=== PATIENT | male | born 1950 | race Caucasian/White ===

== ENCOUNTER 2021-12-27 06:17 | Day surgery (SDC) | payer MEDICARE, SELFPAY ==
--- NOTE | 2021-12-22 16:30 | MHC.SHP ---
Pre-Procedural Eval Section A Date of Service: 12/22/21 The patient is an INPATIENT: No Changes since office visit: No Cold of Flu in the past 2 weeks, No New Medical Problems, No Changes in Medication and No Patient answered all questions The History & Physical has been completed within 30 days and I have reviewed it.: Yes Section B Chief Complaint: cataract Allergies: Allergies Allergy/AdvReac Type Severity Reaction Status Date / Time No Known Allergies Allergy Verified 12/21/21 14:36 Plan Diagnosis/Plan: Unchanged I have reviewed the history and physical and performed a pertinent physical examination on my patient. No changes have occurred unless specified.
--- NOTE | 2021-12-24 08:47 | P.CONAN_ITS ---
Documented by User: Meghna Shay NP 12/24/21 08:47 HPI - Anesthesia Eval Consult details Narrative: 71yo M for Left Cataract Extraction IOL Insertion PCP cleared No previous cataract on record [facility] Past Medical History Medical History (Updated 12/21/21 @ 14:36 by Lauren Ruiz, RN) Elevated cholesterol GERD (gastroesophageal reflux disease) HTN (hypertension) Surgical History Surgical History (Updated 12/21/21 @ 14:36 by Lauren Ruiz RN) Hx of colonoscopy Social History Social History Are you a primary intensive care anaesthetist to a significant other at home: No Do you presently have visiting nurse or other home services: No Patient Tobacco Use Status: Former Tobacco user Quit Date: 30 years ago Tobacco use type: Cigarette Second Hand Smoke Exposure: No Use of substances other than those prescribed or required for medical reasons: No Have you been hit, kicked, punched, or otherwise hurt by someone within the past year? If so, by whom?: No Are you DNR?: No Advance Directives: No Advance Directives Information Provided: Yes Advance Directives on File: No Recently lost weight without trying: No Eating poorly because of decreased appetite: No Nutrition Risks: No Nutritional Risk Meds Allergies Allergy/AdvReac Type Severity Reaction Status Date / Time No Known Allergies Allergy Verified 12/21/21 14:36 Home Medications Medication Instructions Recorded Confirmed Last Taken Type amlodipine 5 mg tablet 1 tab PO DAILY 12/21/21 12/21/21 12/27/21 History losartan 100 mg tablet 1 tab PO DAILY 12/21/21 12/21/21 Unknown History omeprazole 20 mg tablet,delayed 20 mg PO DAILY 12/21/21 12/21/21 12/27/21 History release psyllium husk 3.4 gram/5.4 gram 1 tbsp PO DAILY 12/21/21 12/21/21 Unknown History oral powder (Metamucil) rosuvastatin 20 mg tablet 1 tab PO BEDTIME 12/21/21 12/21/21 Unknown History Exam Exam Date and Time: December 24, 2021 0847 Height,Weight and Vital Signs: Height 5 ft 4 in Weight 79.379 kg Assessment and Plan Assessment Anesthesia Assessment: Chart Reviewed Documented by User: Ilya Carter MD 12/27/21 07:02 [facility] Past Medical History Medical History (Updated 12/21/21 @ 14:36 by Lauren Ruiz, RN) Elevated cholesterol GERD (gastroesophageal reflux disease) HTN (hypertension) Family History Family history of problems with anesthesia: No Surgical History Surgical History (Updated 12/21/21 @ 14:36 by Lauren Ruiz, KANDY) Hx of colonoscopy History of Problems with Anesthesia: No Social History Social History Are you a primary intensive care anaesthetist to a significant other at home: No Do you presently have visiting nurse or other home services: No Patient Tobacco Use Status: Former Tobacco user Quit Date: 30 years ago Tobacco use type: Cigarette Second Hand Smoke Exposure: No Use of substances other than those prescribed or required for medical reasons: No Have you been hit, kicked, punched, or otherwise hurt by someone within the past year? If so, by whom?: No Are you DNR?: No Advance Directives: No Advance Directives Information Provided: Yes Advance Directives on File: No Recently lost weight without trying: No Eating poorly because of decreased appetite: No Nutrition Risks: No Nutritional Risk Meds Allergies Allergy/AdvReac Type Severity Reaction Status Date / Time No Known Allergies Allergy Verified 12/21/21 14:36 Home Medications Medication Instructions Recorded Confirmed Last Taken Type amlodipine 5 mg tablet 1 tab PO DAILY 12/21/21 12/21/21 12/27/21 History losartan 100 mg tablet 1 tab PO DAILY 12/21/21 12/21/21 Unknown History omeprazole 20 mg tablet,delayed 20 mg PO DAILY 12/21/21 12/21/21 12/27/21 History release psyllium husk 3.4 gram/5.4 gram 1 tbsp PO DAILY 12/21/21 12/21/21 Unknown History oral powder (Metamucil) rosuvastatin 20 mg tablet 1 tab PO BEDTIME 12/21/21 12/21/21 Unknown History Exam Airway Mallampati Class: II TM Dist: >3cm Neck ROM: Full Loose/Missing/Broken Teeth: No (many caps and crowns, none loose as per patient) Heart: rrr+s1s2 Lungs: cta b/l Assessment and Plan Assessment Anesthesia Assessment: Anesthesia Plan Discussed Final Anesthetic Review Family History of Problems with Anesthesia: No History of Problems with Anesthesia: No NPO: Yes ASA Class: III Final Preanesthetic Review: No Changes in Pt Med Stat, Meds/Allgs Chart Reviewed, Consent Obtained/Reviewed and Anes Risks/Benef Reviewed Patient Risk: Intermediate Procedure Risk: Low Assessment/Block/Sedation in SS: Assess/Block/Sedation-SS Anesthetic Plan Anesthetic Plan: MAC: and Agree w/ Assess. and Plan Disposition: Standard PACU
[2021-12-27 06:25] VITALS: BP 178/84; PULSE 61; RESP 18; TEMP 36.1; O2SAT 96
[2021-12-27] MEDS: Lactated Ringers 500 ML 50 ML IV (06:29)
[2021-12-27] MEDS: Tropicamide 1 % Ophth Sol 3 ML BTL 1 DROP EYE-LEFT ×3 (06:31→06:32)
[2021-12-27] MEDS: Phenylephrine HCL 2.5% Oph SoL 2 ML BOTTLE 1 DROP EYE-LEFT ×3 (06:31→06:32)
[2021-12-27] MEDS: Tetracaine HCl/PF 0.5% Oph Sol 4 ML DROPS 1 DROP EYE-LEFT (06:31)
--- NOTE | 2021-12-27 07:09 | HO.PNOPHT ---
Ophthalmology Procedure Procedure Date of Service: 12/27/21 Ophthalmology Viscoelastic: Healon Duet Dual Pack Pro Ophthalmology Lenses: TECELMER [id number] (21.5) Procedure Notes: PREOPERATIVE DIAGNOSIS: Decreased visual acuity left eye secondary to cataract POSTOPERATIVE DIAGNOSIS: Same PROCEDURE: Left cataract extraction with intraocular lens insertion SURGEON: Jair Gambino M.D. ANESTHESIA: Topical/MAC ESTIMATED BLOOD LOSS: None COMPLICATIONS: None After obtaining informed consent, the patient was brought to the operation room suite and placed in the supine position. After adequate sedation per anesthesia, topical drops of Tetracaine were given to the left eye. The eye was then prepped and draped in the usual sterile fashion. The operating room microscope was then positioned over the operative eye and a lid speculum placed. A paracentesis was created. Viscoelastic was then instilled into the anterior chamber. A three plane incision was then created temporally, utilizing a 2.85 mm keratome. Capsulotomy forceps were then utilized to create a circular tear capsulotomy. Hydrodissection and hydrodelineation were carried out until adequate mobilization of the nucleus occurred. Phacoemulsification was then utilized to remove the dense central nucleus followed by removal of the cortical material utilizing the automated aspiration irrigation unit. Viscoat elastic was instilled into the posterior capsular bag followed by placement of a posterior chamber intraocular lens without difficulty. The residual Viscoat elastic was then removed utilizing the automated IA machine. The wound was check and found to be watertight. The patient tolerated the procedure well and the lid speculum was removed. Intracameral injection of Vigamox 0.1 mL followed by a subtenon injection of Kenalog-40 0.2 mL were administered. The patient will be seen in the a.m.
[2021-12-27 07:53] VITALS: BP 136/74; PULSE 59; RESP 18; TEMP 36.6; O2SAT 96
== END 2021-12-27 08:04 | disposition home or self-care (01) ==
PROVIDERS: PCP Internal Medicine; Visit Provider Ophthalmology
PROC: (CPT 66985; principal; 2021-12-27 07:30)
DX: H25.12 Age-related nuclear cataract, left eye (principal); Z83.511 Family history of glaucoma; H40.013 Open angle with borderline findings, low risk, bilateral; H52.4 Presbyopia; H35.00 Unspecified background retinopathy; I10 Essential (primary) hypertension; E78.00 Pure hypercholesterolemia, unspecified; K21.9 Gastro-esophageal reflux disease without esophagitis; Z79.899 Other long term (current) drug therapy
CPT/HCPCS: 66984; J2250; J3010; J3300; V2632

== ENCOUNTER 2022-01-10 06:44 | Day surgery (SDC) | payer MEDICARE, SELFPAY ==
--- NOTE | 2022-01-06 08:03 | MHC.SHP ---
Pre-Procedural Eval Section A Date of Service: 01/06/22 The patient is an INPATIENT: No Changes since office visit: No Cold of Flu in the past 2 weeks, No New Medical Problems, No Changes in Medication and No Patient answered all questions The History & Physical has been completed within 30 days and I have reviewed it.: Yes Section B Chief Complaint: cataract Allergies: Allergies Allergy/AdvReac Type Severity Reaction Status Date / Time No Known Allergies Allergy Verified 12/21/21 14:36 Plan Diagnosis/Plan: Unchanged I have reviewed the history and physical and performed a pertinent physical examination on my patient. No changes have occurred unless specified.
--- NOTE | 2022-01-06 12:11 | HO.ANESPROP2 ---
Documented by User: Meghna Shay NP 01/06/22 12:12 HPI - Anesthesia Eval Consult details Narrative: 71yo M for Right Cataract Extraction IOL Insertion PCP cleared Left eye 12/27/21 with MAC: Fent 50, Midaz 1 PMFSH Past Medical History Medical History (Updated 12/21/21 @ 14:36 by Lauren Ruiz, RN) Elevated cholesterol GERD (gastroesophageal reflux disease) HTN (hypertension) Family History Family history of problems with anesthesia: No Surgical History Surgical History (Updated 12/21/21 @ 14:36 by Lauren Ruiz, RN) Hx of colonoscopy History of Problems with Anesthesia: No Social History Social History Are you a primary career placement services counselor to a significant other at home: No Do you presently have visiting nurse or other home services: No Patient Tobacco Use Status: Former Tobacco user Quit Date: 30 years ago Tobacco use type: Cigarette Second Hand Smoke Exposure: No Use of substances other than those prescribed or required for medical reasons: No Have you been hit, kicked, punched, or otherwise hurt by someone within the past year? If so, by whom?: No Are you DNR?: No Advance Directives: No Advance Directives Information Provided: Yes Advance Directives on File: No Recently lost weight without trying: No Eating poorly because of decreased appetite: No Nutrition Risks: No Nutritional Risk Meds Allergies Allergy/AdvReac Type Severity Reaction Status Date / Time No Known Allergies Allergy Verified 12/21/21 14:36 Home Medications Medication Instructions Recorded Confirmed Last Taken Type amlodipine 5 mg tablet 1 tab PO DAILY 12/21/21 12/21/21 12/27/21 History losartan 100 mg tablet 1 tab PO DAILY 12/21/21 12/21/21 Unknown History omeprazole 20 mg tablet,delayed 20 mg PO DAILY 12/21/21 12/21/21 12/27/21 History release psyllium husk 3.4 gram/5.4 gram 1 tbsp PO DAILY 12/21/21 12/21/21 Unknown History oral powder (Metamucil) rosuvastatin 20 mg tablet 1 tab PO BEDTIME 12/21/21 12/21/21 Unknown History Exam Exam Date and Time: January 06, 2022 1211 Height,Weight and Vital Signs: Height 5 ft 4 in Weight 79.379 kg Assessment and Plan Assessment Anesthesia Assessment: Chart Reviewed Final Anesthetic Review Family History of Problems with Anesthesia: No History of Problems with Anesthesia: No Documented by User: Ilya Carter MD 01/09/22 12:00 [facility] Past Medical History Medical History (Updated 12/21/21 @ 14:36 by Lauren Ruiz, RN) Elevated cholesterol GERD (gastroesophageal reflux disease) HTN (hypertension) Surgical History Surgical History (Updated 12/21/21 @ 14:36 by Lauren Ruiz RN) Hx of colonoscopy Social History Social History Are you a primary career placement services counselor to a significant other at home: No Do you presently have visiting nurse or other home services: No Patient Tobacco Use Status: Former Tobacco user Quit Date: 30 years ago Tobacco use type: Cigarette Second Hand Smoke Exposure: No Use of substances other than those prescribed or required for medical reasons: No Have you been hit, kicked, punched, or otherwise hurt by someone within the past year? If so, by whom?: No Are you DNR?: No Advance Directives: No Advance Directives Information Provided: Yes Advance Directives on File: No Recently lost weight without trying: No Eating poorly because of decreased appetite: No Nutrition Risks: No Nutritional Risk Meds Allergies Allergy/AdvReac Type Severity Reaction Status Date / Time No Known Allergies Allergy Verified 12/21/21 14:36 Home Medications Medication Instructions Recorded Confirmed Last Taken Type amlodipine 5 mg tablet 1 tab PO DAILY 12/21/21 12/21/21 12/27/21 History losartan 100 mg tablet 1 tab PO DAILY 12/21/21 12/21/21 Unknown History omeprazole 20 mg tablet,delayed 20 mg PO DAILY 12/21/21 12/21/21 12/27/21 History release psyllium husk 3.4 gram/5.4 gram 1 tbsp PO DAILY 12/21/21 12/21/21 Unknown History oral powder (Metamucil) rosuvastatin 20 mg tablet 1 tab PO BEDTIME 12/21/21 12/21/21 Unknown History Exam Airway Mallampati Class: II TM Dist: >3cm Neck ROM: Full Loose/Missing/Broken Teeth: Yes (No (many caps and crowns, none loose as per patient)) Heart: rrr+s1s2 Lungs: cta b/l Assessment and Plan Assessment Anesthesia Assessment: Anesthesia Plan Discussed Final Anesthetic Review NPO: Yes ASA Class: III Final Preanesthetic Review: No Changes in Pt Med Stat, Meds/Allgs Chart Reviewed, Consent Obtained/Reviewed and Anes Risks/Benef Reviewed Patient Risk: Intermediate Procedure Risk: Low Assessment/Block/Sedation in SS: Assess/Block/Sedation-SS Anesthetic Plan Anesthetic Plan: MAC: Disposition: Standard PACU
[2022-01-10 07:17] VITALS: BP 140/77; PULSE 56; RESP 17; TEMP 36.1; O2SAT 96
[2022-01-10] MEDS: Tropicamide 1 % Ophth Sol 3 ML BTL 1 DROP EYE-RIGHT ×3 (07:21→07:29)
[2022-01-10] MEDS: Tetracaine HCl/PF 0.5% Oph Sol 4 ML DROPS 1 DROP EYE-RIGHT (07:21)
[2022-01-10] MEDS: Phenylephrine HCL 2.5% Oph SoL 2 ML BOTTLE 1 DROP EYE-RIGHT ×3 (07:21→07:29)
[2022-01-10] MEDS: Lactated Ringers 500 ML 50 ML IV (07:38)
--- NOTE | 2022-01-10 08:07 | HO.PNOPHT ---
Ophthalmology Procedure Procedure Date of Service: 01/10/22 Ophthalmology Viscoelastic: Shanice Beckt Dual Pack Pro Ophthalmology Lenses: TECELMER [id number] (21) Procedure Notes: PREOPERATIVE DIAGNOSIS: Decreased visual acuity right eye secondary to cataract POSTOPERATIVE DIAGNOSIS: Same PROCEDURE: Right cataract extraction with intraocular lens insertion SURGEON: Jair Gambino M.D. ANESTHESIA: Topical/MAC ESTIMATED BLOOD LOSS: None COMPLICATIONS: None After obtaining informed consent, the patient was brought to the operating room suite and placed in the supine position. After adequate sedation per anesthesia, topical drops of Tetracaine were given to the right eye. The eye was then prepped and draped in the usual sterile fashion. The operating room microscope was then positioned over the operative eye and a lid speculum placed. A paracentesis was created. Viscoelastic was then instilled into the anterior chamber. A three plane incision was then created temporally, utilizing a 2.85 mm keratome. Capsulotomy forceps were then utilized to create a circular tear capsulotomy. Hydrodissection and hydrodelineation were carried out until adequate mobilization of the nucleus occurred. Phacoemulsification was then utilized to remove the dense central nucleus followed by removal of the cortical material utilizing the automated aspiration irrigation unit. Viscoelastic was instilled into the posterior capsular bag followed by placement of a posterior chamber intraocular lens without difficulty. The residual Viscoelastic was then removed utilizing the automated IA machine. The wound was checked and found to be watertight. The patient tolerated the procedure well and the lid speculum was removed. Intracameral injection of Vigamox 0.1 mL followed by a subtenon injection of Kenalog-40 0.2 mL were administered. The patient will be seen in the a.m.
[2022-01-10 08:30] VITALS: BP 124/70; PULSE 56; RESP 16; TEMP 36.2; O2SAT 95
== END 2022-01-10 08:45 | disposition home or self-care (01) ==
PROVIDERS: PCP Internal Medicine; Visit Provider Ophthalmology
PROC: (CPT 66985; principal; 2022-01-10 08:20)
DX: H25.11 Age-related nuclear cataract, right eye (principal); H52.4 Presbyopia; H40.013 Open angle with borderline findings, low risk, bilateral; H35.00 Unspecified background retinopathy; Z83.511 Family history of glaucoma; E78.00 Pure hypercholesterolemia, unspecified; I10 Essential (primary) hypertension; K21.9 Gastro-esophageal reflux disease without esophagitis; Z79.899 Other long term (current) drug therapy; Z87.891 Personal history of nicotine dependence
CPT/HCPCS: 66984; J2250; J3010; J3300; V2632